=== PATIENT | male | born 1970 | race Two or more races ===

== ENCOUNTER 2023-12-21 14:38 | Emergency (ER) | payer OTHER ==
[~2023-12-21] VITALS: Ht 175.3 cm; Wt 81.6 kg
[2023-12-21] MEDS ORDERED: FAMOtidine 20 MG TABLET PO STA (16:33)
[2023-12-21] MEDS ORDERED: KETOROLAC TROMETHAMINE 30 MG VIAL IM STA (16:34)
[2023-12-21] MEDS ORDERED: NAPROXEN500 MG PO (17:27)
== END 2023-12-21 17:39 | disposition home or self-care (01) ==
LOC: ER 14:40
DX: M94.0 Chondrocostal junction syndrome [Tietze] (principal); R07.89 Other chest pain